=== PATIENT | female | born 1985 | race African-American/Black ===

== ENCOUNTER 2016-12-05 22:39 | Emergency (ER) | payer MEDICAID ==
[~2016-12-05] VITALS: Ht 170.2 cm; Wt 84.0 kg
[~2016-12-05 22:39] MED LIST: HYDR-3240 PO; IBUP-1223 PO; PREN1CAP15 PO
[2016-12-05 23:33] LABS: HEMATOCRIT 40.9 % (34.6-47.8); HEMOGLOBIN 13.3 g/dL (11.7-16.4); WHITE BLOOD COUNT 8.1 x10^3/uL (3.4-10)
[2016-12-05 23:35] LABS: HCG UR OBC PASS
[2016-12-05 23:44] LABS: BLOOD UREA NITROGEN 7 mg/dL (7-18)
[2016-12-06] MEDS ORDERED: ONDANSETRON ODT 4 MG PO ONE
[2016-12-06 00:29] VITALS: BP 118/76
== END 2016-12-06 00:31 | disposition home or self-care (01) ==
LOC: ED 23:59
DX: R11.0 Nausea (principal)
CPT/HCPCS: 36415; 80048; 81001; 81025; 82040; 85025; 87086; 99284